=== PATIENT | male | born 1985 | race African-American/Black ===

== ENCOUNTER 2025-01-04 00:11 | Emergency (ER) | payer MEDICAID ==
[~2025-01-04] VITALS: Ht 180.3 cm; Wt 92.0 kg
[2025-01-04 00:14] VITALS: O2SAT 99
[2025-01-04] MEDS: LIDOCAINE HCL/PF 1% 10 MG/ML 5ML VIAL INFIL ONE (00:30)
[2025-01-04] MEDS: BACITRACIN ZINC OINT UDPKT TOP ONE (00:30)
[2025-01-04] MEDS: ACETAMINOPHEN 325MG TABLET PO ONE (00:53)
[2025-01-04] MEDS: TETANUS, DIPHTHERIA, PERTUSSIS VAC/PF 0.5ML (>10YR OLD) IM ONE (00:57)
[2025-01-04 01:43] VITALS: BP 128/83; PULSE 60; RESP 20; TEMP 36.9; O2SAT 100
== END 2025-01-04 01:44 | disposition home or self-care (01) ==
LOC: ER 00:11
DX: S61.210A Laceration without foreign body of right index finger without damage to nail, initial encounter (principal); J45.909 Unspecified asthma, uncomplicated; I10 Essential (primary) hypertension; X58.XXXA Exposure to other specified factors, initial encounter; Y93.89 Activity, other specified; Y92.89 Other specified places as the place of occurrence of the external cause; Y99.8 Other external cause status
CPT/HCPCS: 99283; 90715; 12001; 90471; J2003